=== PATIENT | female | born 1955 | race Caucasian/White ===

== ENCOUNTER 2018-03-27 15:35 | Emergency (ER) | payer OTHER ==
[~2018-03-27] VITALS: Ht 162.6 cm; Wt 72.6 kg
[2018-03-27 15:35] VITALS: BP 133/68
[2018-03-27] MEDS ORDERED: ACETAMINOPHEN ES 500 MG TABLET PO ONE (16:00)
[2018-03-27] MEDS ORDERED: ACETAMINOPHEN ES 500 MG TABLET ONE (16:16)
== END 2018-03-27 16:31 | disposition home or self-care (01) ==
LOC: ER 15:36
DX: S90.01XA Contusion of right ankle, initial encounter (principal); S80.12XA Contusion of left lower leg, initial encounter; S00.211A Abrasion of right eyelid and periocular area, initial encounter; Z23 Encounter for immunization; W20.8XXA Other cause of strike by thrown, projected or falling object, initial encounter; Y93.89 Activity, other specified; Y92.89 Other specified places as the place of occurrence of the external cause; Y99.8 Other external cause status
CPT/HCPCS: 99282; A4606; Z7610